=== PATIENT | female | born 1985 | race Caucasian/White ===

== ENCOUNTER 2021-02-26 07:44 | Day surgery (SDC) | payer MEDICAID ==
[2021-02-26] VITALS (13 sets, daily range): BP systolic 119–144; BP diastolic 70–96
--- OUTSIDE RECORDS SUMMARY | 2021-02-26 07:48 | XMS REPORT ---
Discharge Summary 2.1 Created on: 02/12/2021 BLAYNE ARELLANO : 1985 Sex: Female Author Author BLAYNE PUGA Organization Unknown Address [address] [place], [place] [address] Care Team Providers Care Operating Room Orderly Name Role Phone Watchlist CLIVE Craven MD Attending RANDA MONREAL MD Consult1 [facility] CLIVE Craven MD HOSPITAL Watchlist [phone] Functional Status No Data Found Immunization Immunization Date Status Additional Notes Code Code System DTP DTP 1985 Completed CVX DTP DTP 1987 Completed CVX DTP DTP 1987 Completed CVX DTP DTP 09/16/1988 Completed CVX DTP DTP 09/12/1991 Completed 01 CVX OPV OPV 1987 Completed 02 CVX OPV OPV 1987 Completed 02 CVX OPV OPV 09/16/1988 Completed 02 CVX OPV OPV 09/12/1991 Completed 02 CVX MMR MMR 10/20/2012 Completed 03 CVX MMR MMR 12/28/1989 Completed 03 CVX MMR MMR 10/17/1991 Completed 03 CVX Hep B, adolescent or pediatric Hep B, adolescent or pediatric 10/29 Completed 08 CVX Td (adult), 2 Lf tet anus toxoid, preservative free, adsorbed Td (adult), 2 Lf tetanus toxoid, preservative free, adsorbed 08/08/2003 Completed 09 CVX IPV IPV 1987 Completed 10 CVX IPV IPV 1987 Completed 10 CVX IPV IPV 09/16/1988 Completed 10 CVX IPV IPV 09/12/1991 Completed 10 CVX DTaP DTaP 1987 Completed 20 CVX DTaP DTaP 1987 Completed 20 CVX DTaP DTaP 1987 Completed 20 CVX DTaP DTaP 09/16/1988 Completed 20 CVX DTaP DTaP 09/12/1991 Completed 20 CVX Hib (HbOC) Hib (HbOC) 08/30/1990 Completed 47 CVX Hib (PRP-T) Hib (PRP-T) 08/30/1990 Completed 48 CVX Td (adult), 5 Lf tet anus toxoid, preservative free, adsorbed Td (adult), 5 Lf tetanus toxoid, preservative free, adsorbed 08/08/2003 Completed 113 CVX Tdap Tdap 10/20/2012 Completed 115 CVX Tdap Tdap 12/02/2012 Completed 115 CVX Tdap Tdap 11/28/2014 Canceled 115 CVX COVID-19 vaccine, ve ctor-nr, rS-Ad26, PF, 0.5 mL COVID-19 vaccine, vector-nr, rS-Ad26, PF , 0.5 mL 09/17/2020 Completed 212 CVX Mental Status No Data Found Results CBC W/ AUTO DIFF (RFLX MAN DIFF IF IND) - Collect Date/Time: 02/12/2021 05:55 [employer] ID: [id number] [address], [place], [place], [id number] LOINC: 88000-7 Test Value Unit Reference Range Code Code System WBC 7.9 TH/CMM L=4.5 H=10.8 80272-5 LOINC RBC 1.67 ML/CMM L=4.20 H=5.40 789-8 LOINC HGB 5.4 G/DL L=12.0 H=16.0 7 18-7 LOINC HCT 15.7 % L=37.0 H=47.0 4544 -3 LOINC MCV 94 FL L=81 H=99 MCH 32.3 PG L=27.0 H=33.0 MCHC 34.4 G/DL L=31.0 H=36.0 RDW SD 51 FL L=36 H=50 RDW CV 15.6 % L=0.0 H=14.8 MPV 11.4 FL L=9.3 H=12.5 PLT 259 TH/CMM L=130 H=440 777-3 LOINC NRBC# 0.00 TH/CMM L=0.00 H=0.00 NRBC% 0.0 /100WBC L=0.0 H=2.0 %NEUT 87.3 % %LYMP 6.2 % %MONO 6.1 % %EOS 0.0 % %BASO 0.0 % #NEUT 6.91 TH/CMM L=2.10 H=8.20 #LYMP 0.49 TH/CMM L=0.90 H=5.20 #MONO 0.48 TH/CMM L=0.16 H=1.00 #EOS 0.00 TH/CMM L=0.00 H=0.80 #BASO 0.00 TH/CMM L=0.00 H=0.20 MANUAL DIFF NOT IND COMPREHENSIVE METABOLIC PANEL - Collect Date/Time: 02/12/2021 05:55 [employer] ID: [id number] [address] [facility] [address], [place], [place], [id number] LOINC: 62235-7 Test Value Unit Reference Range Code Code System GLUCOSE 130 MG/DL L=74 H=100 2 345-7 LOINC SODIUM 137 MEQ/L L=135 H=145 2 951-2 LOINC POTASSIUM 4.6 MEQ/L L=3.5 H=5.1 2 823-3 LOINC CHLORIDE 98 MEQ/L L=98 H=107 2 075-0 LOINC CO2 26 MEQ/L L=22 H=30 20 28-9 LOINC BUN 18 MG/DL L=7 H=17 30 94-0 LOINC CREATININE 0.70 MG/DL L=0.50 H=1.00 2160-0 LOINC SGOT/AST 21 IU/L L=14 H=36 192 0-8 LOINC SGPT/ALT 21 IU/L L=0 H=35 174 2-6 LOINC ALK PHOS 54 IU/L L=40 H=150 67 68-6 LOINC TOTAL PROTEIN 7.1 G/DL L=6.3 H=8.2 28 85-2 LOINC ALBUMIN 3.6 G/DL L=3.5 H=5.0 17 51-7 LOINC TOTAL BILI 1.0 MG/DL L=0.2 H=1.3 1 975-2 LOINC CALCIUM 8.8 MG/DL L=8.6 H=10.3 46336-8 LOINC AGE 36 yrs GFR NonAA 96 GFR AA 116 eGFR 96 mL/min/1.7 eGFR AA* >60 .BB COMPATIBILITY - Collect Date/Time: 0 02/11/2021 12:30 [employer] ID: [id number] [address], [place], [place], [id number] LOINC: 1250-0 Test Value Unit Reference Range Code Code System Cross Match Result COMPATIBLE Unit Blood Type A Pos Unit Number [id number] RBC -1 LR Status Information Ready Product Identification Red Blood Cells DIRECT CHEL - Collect Date/Time: 02/11 12:27 Hello [employer] ID: [id number] [address], [place], [place], [id number] LOINC: 1007-4 Test Value Unit Reference Range Code Code System Anti-IgG MAURI- Gel Positive .BB ANTIBODY ID - Collect Date/Time: 12:21 Hello [employer] ID: [id number] [address], [place], [place], [phone] LOINC: 888-8 Test Value Unit Reference Range Code Code System Panel - Gel Warm AutoAntibody TYPE AND Rh - Collect Date/Time: 021 12:21 Hello [employer] ID: [id number] [address], [place], [place], [id number] LOINC: 882-1 Test Value Unit Reference Range Code Code System ABO/Rh Type A Positive DIRECT CHEL - Collect Date/Time: 02/11 12:21 Hello [employer] ID: [id number] [address] [place], [place], [id number] LOINC: 1007-4 Test Value Unit Reference Range Code Code System Anti-IgG MAURI- Gel Positive MAURI:Polyspec Tube POSITIVE MAURI Anti-C3d Tube POSITIVE ANTIBODY SCREEN - Collect Date/Time: 12:21 [facility] ID: [id number] [address] [facility] [address] [place], [place], [phone] LOINC: 890-4 Test Value Unit Reference Range Code Code System Antibody Screen-Gel Positive CBC W/ AUTO DIFF (RFLX MAN DIFF IF IND) - Collect Date/Time: 02/11/2021 07:55 [facility] ID: [id number] [address] [facility] [address] [place], [place], [id number] LOINC: 60284-3 Test Value Unit Reference Range Code Code System WBC 5.7 TH/CMM L=4.5 H=10.8 31286-0 LOINC RBC 1.16 ML/CMM L=4.20 H=5.40 789-8 LOINC HGB 4.1 G/DL L=12.0 H=16.0 7 18-7 LOINC HCT 11.8 % L=37.0 H=47.0 4544 -3 LOINC MCV 102 FL L=81 H=99 MCH 35.3 PG L=27.0 H=33.0 MCHC 34.7 G/DL L=31.0 H=36.0 RDW SD 52 FL L=36 H=50 RDW CV 15.1 % L=0.0 H=14.8 MPV 11.2 FL L=9.3 H=12.5 PLT 290 TH/CMM L=130 H=440 777-3 LOINC NRBC# 0.00 TH/CMM L=0.00 H=0.00 NRBC% 0.0 /100WBC L=0.0 H=2.0 %NEUT 90.2 % %LYMP 7.1 % %MONO 2.4 % %EOS 0.0 % %BASO 0.0 % #NEUT 5.17 TH/CMM L=2.10 H=8.20 #LYMP 0.41 TH/CMM L=0.90 H=5.20 #MONO 0.14 TH/CMM L=0.16 H=1.00 #EOS 0.00 TH/CMM L=0.00 H=0.80 #BASO 0.00 TH/CMM L=0.00 H=0.20 MANUAL DIFF SEE BELOW SEGS 93 % BANDS LYMPHS 7 % MONOS EOS BASO METAS MYELO PROS BLASTS ATYP LYMPHS RBC MORPH DIRECT CHEL - Collect Date/Time: 02/11 07:55 [employer] ID: [id number] [address] [facility] [address], [place], [place], [id number] LOINC: 1007-4 Test Value Unit Reference Range Code Code System Anti-IgG MAURI- Gel Positive MAURI:Polyspec Tube POSITIVE MAURI Anti-C3d Tube POSITIVE BILIRUBIN DIRECT - Collect Date/Time: 07:55 [employer] ID: [id number] [address] [facility] [address], [place], [place], [id number] LOINC: 1968-7 Test Value Unit Reference Range Code Code System DIRECT BILI 0.1 MG/DL L=0.0 H=0.4 1 968-7 LOINC HAPTOGLOBIN QUANT - Collect Date/Time: 0 02/11/2021 07:55 Hello [employer] ID: [id number] [address] [facility] [address], [place], [place], [id number] LOINC: 4542-7 Test Value Unit Reference Range Code Code System Haptoglobin 21 33-278 4542-7 LOINC COMPREHENSIVE METABOLIC PANEL - Collect Date/Time: 02/11/2021 07:55 [employer] ID: [id number] [address] [facility] [address], [place], [place], [phone] LOINC: 64920-3 Test Value Unit Reference Range Code Code System GLUCOSE 139 MG/DL L=74 H=100 2 345-7 LOINC SODIUM 136 MEQ/L L=135 H=145 2 951-2 LOINC POTASSIUM 4.7 MEQ/L L=3.5 H=5.1 2 823-3 LOINC CHLORIDE 96 MEQ/L L=98 H=107 2 075-0 LOINC CO2 28 MEQ/L L=22 H=30 20 28-9 LOINC BUN 15 MG/DL L=7 H=17 30 94-0 LOINC CREATININE 0.60 MG/DL L=0.50 H=1.00 2160-0 LOINC SGOT/AST 43 IU/L L=14 H=36 192 0-8 LOINC SGPT/ALT 19 IU/L L=0 H=35 174 2-6 LOINC ALK PHOS 66 IU/L L=40 H=150 67 68-6 LOINC TOTAL PROTEIN 7.3 G/DL L=6.3 H=8.2 28 85-2 LOINC ALBUMIN 3.7 G/DL L=3.5 H=5.0 17 51-7 LOINC TOTAL BILI 1.0 MG/DL L=0.2 H=1.3 1 975-2 LOINC CALCIUM 8.7 MG/DL L=8.6 H=10.3 90293-6 LOINC AGE 36 yrs GFR NonAA 114 GFR AA 138 eGFR 114 mL/min/1.7 eGFR AA* >60 INHOUSE COVID-19 - Collect Date/Time: 19:49 [employer] ID: [id number] [address] [facility] [address], [place], [place], [id number] LOINC: Q12164-8 Test Value Unit Reference Range Code Code System SARS-CoV-2 RNA Not Detected NL: Not Detected S65983-7 LOINC Specimen Source: Nasopharyngeal COMPREHENSIVE METABOLIC PANEL - Collect Date/Time: 02/10/2021 17:05 [employer] ID: [id number] [address] [facility] [address], [place], [place], [id number] LOINC: 04578-0 Test Value Unit Reference Range Code Code System GLUCOSE 103 MG/DL L=74 H=100 2 345-7 LOINC SODIUM 136 MEQ/L L=135 H=145 2 951-2 LOINC POTASSIUM 4.1 MEQ/L L=3.5 H=5.1 2 823-3 LOINC CHLORIDE 95 MEQ/L L=98 H=107 2 075-0 LOINC CO2 28 MEQ/L L=22 H=30 20 28-9 LOINC BUN 21 MG/DL L=7 H=17 30 94-0 LOINC CREATININE 0.70 MG/DL L=0.50 H=1.00 2160-0 LOINC SGOT/AST 22 IU/L L=14 H=36 192 0-8 LOINC SGPT/ALT 21 IU/L L=0 H=35 174 2-6 LOINC ALK PHOS 68 IU/L L=40 H=150 67 68-6 LOINC TOTAL PROTEIN 7.2 G/DL L=6.3 H=8.2 28 85-2 LOINC ALBUMIN 3.6 G/DL L=3.5 H=5.0 17 51-7 LOINC TOTAL BILI 1.2 MG/DL L=0.2 H=1.3 1 975-2 LOINC CALCIUM 8.3 MG/DL L=8.6 H=10.3 65889-7 LOINC AGE 36 yrs GFR NonAA 96 GFR AA 116 eGFR 96 mL/min/1.7 eGFR AA* >60 HAPTOGLOBIN QUANT - Collect Date/Time: 0 02/10/2021 17:05 [employer] ID: [id number] [address] [facility] [address], [place], [id number] LOINC: 4542-7 Test Value Unit Reference Range Code Code System Haptoglobin <10 33-278 4542-7 LOINC PHOSPHORUS - Collect Date/Time: 02/11/20 17:05 [employer] ID: [id number] [address] [facility] [address], [place], [place], [id number] LOINC: 2777-1 Test Value Unit Reference Range Code Code System PHOSPHORUS 4.1 MG/DL L=2.5 H=4.5 2 777-1 LOINC MAGNESIUM - Collect Date/Time: 17:05 [employer] ID: [id number] [address] [facility] [address], [place], [place], [id number] LOINC: 81500-0 Test Value Unit Reference Range Code Code System MAGNESIUM 2.6 MG/DL L=1.6 H=2.3 1 9123-9 LOINC DIRECT CHEL - Collect Date/Time: 02/10 17:05 Hello [employer] ID: [id number] [address] [facility] [address], [place], [place], [id number] LOINC: 1007-4 Test Value Unit Reference Range Code Code System MAURI:Polyspec Tube POSITIVE TYPE AND CROSS - Collect Date/Time: 01/14 17:05 Hello [employer] ID: [id number] [address] [facility] [address], [place], [address] LOINC: 13846-0 Test Value Unit Reference Range Code Code System ABO/Rh Type A Positive Antibody Screen-Gel Positive CBC W/ AUTO DIFF (RFLX MAN DIFF IF IND) - Collect Date/Time: 02/10/2021 17:05 [employer] ID: [id number] [address] [facility] [address], [place], [id number] LOINC: 78275-3 Test Value Unit Reference Range Code Code System WBC 6.5 TH/CMM L=4.5 H=10.8 97539-7 LOINC RBC 1.21 ML/CMM L=4.20 H=5.40 789-8 LOINC HGB 4.2 G/DL L=12.0 H=16.0 7 18-7 LOINC HCT 12.2 % L=37.0 H=47.0 4544 -3 LOINC MCV 101 FL L=81 H=99 MCH 34.7 PG L=27.0 H=33.0 MCHC 34.4 G/DL L=31.0 H=36.0 RDW SD 54 FL L=36 H=50 RDW CV 15.6 % L=0.0 H=14.8 MPV 11.0 FL L=9.3 H=12.5 PLT 267 TH/CMM L=130 H=440 777-3 LOINC NRBC# 0.00 TH/CMM L=0.00 H=0.00 NRBC% 0.0 /100WBC L=0.0 H=2.0 %NEUT 82.6 % %LYMP 9.5 % %MONO 7.4 % %EOS 0.0 % %BASO 0.2 % #NEUT 5.33 TH/CMM L=2.10 H=8.20 #LYMP 0.61 TH/CMM L=0.90 H=5.20 #MONO 0.48 TH/CMM L=0.16 H=1.00 #EOS 0.00 TH/CMM L=0.00 H=0.80 #BASO 0.01 TH/CMM L=0.00 H=0.20 MANUAL DIFF NOT IND Social History Type Status Start Date End Date Code Code System Smoking History Current every day smoker 981310433 SNOMED-CT Smoking History Never smoker (Never Smoked ) 635825098 SNOMED-CT Vital Signs Vital Sign Value Unit [place] Value [place] Unit Date/Time Recent/Initial? Code Cod e System Body Mass Index 53.29 kg/m2 02/10/2021 18:25 Initial 14836-6 INC Systolic Blood Pressure 150 mm[Hg] 02/12/2021 07:32 Most Recent 8480-6 LOINC Diastolic Blood Pressure 90 mm[Hg] 02/12/2021 07:32 Most Recent 8462-4 LOINC Systolic Blood Pressure 135 mm[Hg] 02/10/2021 18:25 Initial 8480-6 LOINC Diastolic Blood Pressure 84 mm[Hg] 02/10/2021 18:25 Initial 8462-4 LOINC Body Surface Area 2.70 m2 02/10/2021 18:25 Initial 3140-1 LOINC Height 170.1800 cm 67.00 in 02/10/2021 18:25 Initial 8302-2 LOINC O2 Saturation 10 0 % 02/12/2021 07:32 Most Recent 14258-1 LOINC O2 Saturation 10 0 % 02/10/2021 18:25 Initial 30036-6 LOINC Pulse 90.0 /min 0 02/12/2021 07:32 Most Recent 8867-4 LOINC Pulse 103.0 /min 0 02/10/2021 18:25 Initial 8867-4 LOINC Respiration 21 /min 02/12/2021 07:32 Most Recent 9279-1 LOINC Respiration 32 /min 02/10/2021 18:25 Initial 9279-1 LOINC Temperature 36.8 Jeanie 98.3 02/12/2021 07:32 Most Recent 8310-5 LOINC Temperature 37.0 Jeanie 98.6 02/10/2021 18:25 Initial 8310-5 LOINC Weight 154.33 kg 340.25 lbs 02/10/2021 18:25 Initial 72934-0 LOINC Assessment You had the following problems: WARM AUTOIMMUNE HEMOLYTIC ANEMIA DYSPNEA VITAMIN B12 DEFICIENCY FOLIC ACID DEFICIENCY Assessment and Plan: 1. Warm autoimmune Hemolytic anemia: she appears to have missed a day of prednisone -will give solumedrol -pending CBC, Tbili is normal now -recheck chel and haptoglobin -trend HGB -no symptoms of anemia -type 2 units and hold -follow up with dr Beasley on wednesday and track response to steroids 2. GERD: PPI 3. Headache: migraine type -provide pain meds 4. Consitpation: milk and molassess enema -no signs of acute abd or GI bleed 5. Tobacco use: nicotine patch 6. Dispo: DC once no evidence of AIHA or transfer if not responsive to steroids -? failure to keep prednisone after DC - check electrolytes Assessment and Plan: 1. Chel positive hemolytic anemia- prbc transfusion in process. awaiting hematology consultation tomorrow. continue solumedrol . follow cbc. 2.tobacco abuse- highly encouraged total tobacco cessation in light of anemia 3. morbid obesity-discussed the importance of better nutrition and overall improving health 4. headache-continues. meds available. neurologically intact. no evidence of acute sinusitis but will monitor for further symptoms. Hospital Discharge Instructions Should you have any questions prior to discharge, please contact a member of your healthcare team. If you have left the hospital and have any questions, please contact your primary care physician. Reason For Referral Receiving Provider: PAT AUGUST [id number] Hospital Course You were admitted to [facility] on 02/10/2021 17:42 Medications Medication Start Date En d Date Route Frequency Dose Code Code System Medication Instructions Vitamin B12 AvPak 10 00MCG Oral Tablet 10/02/2020 Unknown BY [facility] DAILY 1000 MICROGRAM RxNorm 1000 KATHERINE ROGRAM BY MOUTH DAILY Folic Acid 1MG Oral Tablet 10/02/2020 Unknown BY [facility] DAILY 1 MILLIGRAMS 05108 0 RxNorm 1 MILLIG RAFAEL BY MOUTH DAILY HYDROcodone bitartra te-acetaminophen 5MG-325MG Oral Tablet 02/08/2021 Unknown BY MOUTH NEEDED EVERY 4 HR 1 TABLET 553249 RxNorm 1 TABLET BY MOUTH NEEDED EVERY 4 HR predniSONE 20MG Oral Tablet 02/08/2021 Unknown BY [facility] EVERY 12 HOURS 2 TABLET 342872 RxNorm 2 TABLET BY MOUTH EVERY 12 HOURS for 1 week then 1 tab PO BID for 1 week then 1 tab PO Qday until Hematology follow up NS 1000 ML IV [PRED EFINED] (7983) 02/10/2021 Unknown INTRA VENOUS CONT IV 75 ml/hr 1081116 RxNorm 75 ml/hr INTRAVENOUS ~~~NACL 0.9% (7983) 1000ML IV BAG 1000 ML RxNorm ONDANSETRON [ZOFRAN] INJ 4 MG/2 ML VIAL 02/10/2021 Unknown SLOW IV PUSH PRN Q 4 HRS 4 MG 5251175 RxNorm 4 MG SLO W IV PUSH EVERY 4 HOURS NEE FOLIC ACID(FOLVITE) TAB:1MG 02/10/2021 Unknown BY [facility] DAILY 1 MG 246255 RxNorm 1 MG BY MOUTH DAILY CYANOCOBALAMIN [TALI MIN B12] TAB:1000MCG 02/10/2021 Unknown BY [facility] DAILY 1000 MCG RxNorm 1000 MCG BY MOUTH DAILY BUPROPIONXL[WELL BUTRIN XL]HQR885 MG 02/10/2021 Unknown BY [facility] DAILY 300 MG 737007 RxNorm 300 MG B Y MOUTH DAILY ONDANSETRON [ZOFRAN] INJ 4 MG/2 ML VIAL 02/10/2021 Unknown SLOW IV PUSH PRN Q 4 HRS 4 MG 5484589 RxNorm 4 MG SLO W IV PUSH EVERY 4 HOURS NEE METHYLPREDNISOLONE I NJ [SOLU] 125MG VL 02/10/2021 02/11/2021 IV PUSH Q8H 125 MG 9837605 RxNorm 125 MG I V PUSH EVERY 8 HOURS DOCUSATE SODIUM 100 MG [COLACE] CAPSULE 02/10/2021 Unknown BY [facility] BID 100 MG 7752995 RxNorm 100 MG B Y MOUTH TWO TIMES A DAY HYDROmorphone [DILAU DID] INJ: 2MG/ML 02/10/2021 Unknown IV PU SH PRN Q 6 HRS 1 MG 6628000 RxNorm 1 MG IV PUSH EVERY 6 HRS NEEDE PANTOPRAZOLE [PROTON IX] INJ VIAL: 40 MG 02/10/2021 02/10/2021 SL OW IV PUSH X1 40 MG 179199 RxNorm 40 MG SL OW IV PUSH NOW PANTOPRAZOLE [PROTON IX] INJ VIAL: 40 MG 02/10/2021 Unknown SLOW IV PUSH DAILY 40 MG 373945 RxNorm 40 MG SL OW IV PUSH DAILY DIPHENHYDRAMINE (STEPAN ADRYL)INJ : 50MG/ML 02/11/2021 02/11/2021 SL OW IV PUSH X1 25 MG 6217788 RxNorm 25 MG SL OW IV PUSH NOW HYDROMORPHONE (DILAU DID) TAB:2MG 02/11/2021 Unknown BY [facility] PRN Q 6 HRS 2 MG 290158 RxNorm 2 MG BY MOUTH EVERY 6 HRS NEEDE PredniSONE 20 MG TABLET 02/11/2021 Unknown BY MOUTH BID 60 MG 217528 RxNorm 60 MG BY MOUTH TWO T IMES A DAY FUROSEMIDE [LASIX] T ABLET: 20 MG 02/12/2021 02/12/2021 BY MOUTH X1 20 MG 405256 RxNorm 20 MG BY MOUTH NOW DIPHENHYDRAMINE (STEPAN ADRYL) CAP : 50 MG 02/12/2021 02/12/2021 BY MOUTH X1 50 MG 0531617 RxNorm 50 MG BY MOUTH NOW ACETAMINOPHEN ES [TY LENOL] TAB : 500 MG 02/12/2021 Unknown BY [facility] PRN 500 MG 530789 RxNorm 500 MG B Y MOUTH NEEDED Procedures No Data Found Implants No Data Found Problems Problem Start Date Resol sandra Date Status Code Code System WARM AUTOIMMUNE HEMOLYTIC ANEMIA active 9540648 SNOMED-CT DYSPNEA active 500300388 SNOMED-CT VITAMIN B12 DEFICIENCY active 353162505 SNOMED- CT FOLIC ACID DEFICIENCY active 542878059 SNOMED-CT HYPERVENTILATION 09/27/2020 02/07/2021 resolved 64980293 SNOMED -CT COMMUNITY ACQUIRED PNEUMONIA 02/07/2021 resolved 820620336 SNOME D-CT Allergies Allergy Substance Reaction Severity Start Date Concern Status Code Code System PCN (penicillin) Active 3902788 SNOMED-CT LATEX Active 8804347 RxNorm TOMATO Anaphylaxis (SNOMED-CT: 29893814) Severe Active 252983605 SNOMED-CT Plan of Treatment .BB PRC 02/12/2021 LOINC : 40364-0 CBC W/ AUTO DIFF (RFLX MAN DIFF IF IND) 02/13/2021 LOINC: 07150-5 COMPREHENSIVE METABOLIC PANEL 02/13/2021 LOINC: 94591-8 DIRECT CHEL 02/13/2021 LOINC: 1007-4 US Abdomen LTD (Single Organ) 2019 Encounters No Data Found Goals No Data Found Discharge Medications No Data Found Discharge Diagnosis No Data Found Health Concerns Section No Data Found
[2021-02-26] MEDS ORDERED: NS IV 1000 ML 1,000 ML IV STA (08:03)
[2021-02-26] MEDS ORDERED: LIDOCAINE 1% INJ 20 ML 20 ML VIAL INJ ONE (08:15)
[2021-02-26] MEDS ORDERED: fentaNYL INJ 100 MCG/2 ML AMP IVP ONE (08:15)
[2021-02-26] MEDS ORDERED: MIDAZOLAM 2 MG/2 ML (VERSED) VIAL IVP ONE (08:15)
[2021-02-26 08:26] LABS: ABSOLUTE RETIC # 348 10e9/uL (24-90); BASOPHILS % (AUTO) 0 % (0-10); EOSINOPHILS % (AUTO) 0 % (0-10); HEMATOCRIT 27 % (35-52); HEMOGLOBIN 8.6 g/dL (11.5-16.0); LYMPHOCYTES # (AUTO) 0.7 10^3/uL (1.0-4.0); LYMPHOCYTES % (AUTO) 6 % (12-44); MEAN CORPUSCULAR HEMOGLOBIN 33 pg (25-34); MEAN CORPUSCULAR HGB CONC 32 g/dL (32-36); MEAN CORPUSCULAR VOLUME 103 fL (80-99); MEAN PLATELET VOLUME 10.2 fL (9.0-12.2); MONOCYTES # (AUTO) 0.5 10^3/uL (0.0-1.0); MONOCYTES % (AUTO) 4 % (0-12); NEUTROPHILS # (AUTO) 10.3 10^3/uL (1.8-7.8); NEUTROPHILS % (AUTO) 88 % (42-75); PLATELET COUNT 142 10^3/uL (130-400); RETICULOCYTE % 13.48 % (0.50-2.40); WHITE BLOOD COUNT 11.7 10^3/uL (4.3-11.0)
[2021-02-26 08:36] LABS: PROTHROMBIN TIME PATIENT 13.3 SEC (12.2-14.7)
[2021-02-26 08:58] LABS: ANISOCYTOSIS MARKED; LYMPHOCYTES % (MANUAL) 9 %; MONOCYTES % (MANUAL) 2 %; NEUTROPHILS % (MANUAL) 89 %; NUCLEATED RED BLOOD CELLS 6; POLYCHROMASIA MODERATE
--- NOTE | 2021-02-26 10:01 | Pre-Op Note & Conscious Sedat ---
Pre-Operative Progress Note H&P Reviewed The H&P was reviewed, patient examined and no changes noted. Date H&P Reviewed: Feb 26, 2021 Time H&P Reviewed: 09:00 Pre-Op Diagnosis: hemoglobinopathy Conscious Sedation Pre-Proced Time 09:00 ASA Score 2 For ASA 3 and 4: Consider anesthesia and medical clearance. Also, for patients with a history of failed moderate sedation consider anesthesia. Airway Lungs Heart ASA score ASA 1: a normal healthy patient ASA 2: a patient with a mild systemic disease (mid diabetes, controlled hypertension, obesity ASA 3: a patient with a severe systemic disease that limits activity (angina, COPD, prior Myocardial infarction) ASA 4: a patient with an incapacitating disease that is a constant threat to life (CHF, renal failure) ASA 5: a moribund patient not expected to survive 24 hrs. (ruptured aneurysm) ASA 6: a declared brain- patient whose organs are being harvested. For emergent operations, add the letter E after the classification Mallampati Classification Grade 2 Sedation Plan Analgesia, Amnesia, Plan communicated to team members, Discussed options with elijah franz/fam, Discussed risks with patient/fam The patient is an appropriate candidate to undergo the planned procedure, sedation, and anesthesia. The patient immediately re-assessed prior to indication. PHILL LOW MD Feb 26, 2021 10:01
[2021-02-26] MEDS ORDERED: HYDROcodone/APAP 5 MG/325 MG (LORTAB) TAB PO PRN (10:15)
--- NOTE | 2021-02-26 10:23 | Diagnostic Imaging Report ---
INDICATION: Low hemoglobin. Patient brought to CT suite placed on table in prone position. Axial imaging through the pelvis was performed to evaluate appropriate entry site. The skin of the low back was prepped and draped in usual sterile fashion. Small amount 1% lidocaine was utilized for local anesthesia. Procedure was performed utilizing conscious sedation with radiology nursing constant monitoring. Patient was given a total 100 mcg of fentanyl intravenously and 2 mg Versed intravenously. Total procedure time was 11 minutes. 11-gauge bone marrow biopsy needle was advanced and placed with its tip along the posterior cortex of the right iliac bone. Needle was advanced to the cortex utilizing a bone marrow drill. 2 bone marrow aspirates were then obtained. Next, the bone marrow drill was utilized to obtain a bone marrow core biopsy. Needle was removed and hemostasis was obtained using manual compression. Patient tolerated the procedure well and left the Department in stable condition. IMPRESSION: Successful CT-guided bone marrow aspiration and core biopsy, utilizing conscious sedation. Dictated by: Dictated on workstation # [id number]
[2021-02-26] MEDS ORDERED: FOLI1TAB33 PO (11:20)
[2021-02-26] MEDS ORDERED: PRD50T PO (11:20)
[2021-02-26] MEDS ORDERED: CYAN-41 PO (11:20)
[2021-02-26] MEDS ORDERED: BUPR300T43 PO (11:20)
== END 2021-02-26 12:24 | disposition home or self-care (01) ==
LOC: RAD 07:44 → SDC 10:08 → RAD 12:24
PROVIDERS: ATTEND Internal Medicine Hematology & Oncology
DX: D75.89 Other specified diseases of blood and blood-forming organs (principal); D64.9 Anemia, unspecified; R70.1 Abnormal plasma viscosity; F31.9 Bipolar disorder, unspecified; K21.9 Gastro-esophageal reflux disease without esophagitis; Z90.49 Acquired absence of other specified parts of digestive tract; Z90.89 Acquired absence of other organs; Z79.899 Other long term (current) drug therapy; Z87.891 Personal history of nicotine dependence; G43.909 Migraine, unspecified, not intractable, without status migrainosus
CPT/HCPCS: 36415; 38222; 77012; 85007; 85027; 85045; 85055; 85610; 85730; 88184; 88185; 88237; 88264; 99156

== ENCOUNTER → 2021-04-29 | Outpatient (CLI) | payer MEDICAID, OTHER ==
[~2021-04-29] MED LIST: BUPR300T43 PO; CYAN-41 PO; FOLI1TAB33 PO; PRD50T PO
--- NOTE | 2021-04-29 09:53 | Diagnostic Imaging Report ---
INDICATION: LOW BACK PAIN, NO KNOWN INJURY TECHNIQUE: AP, Lateral and Spot imaging of the lumbar spine CORRELATION STUDY: None FINDINGS: Straightening of normal lumbar lordotic curvature. Lumbar vertebral body heights maintained. Various degrees of mild disc space narrowing. Endplate marginal lipping is present. SI joints are relatively unremarkable. Cholecystectomy clips in the right upper quadrant. IMPRESSION: No radiographic evidence for acute bony abnormality of the lumbar spine. Very mild degenerative changes are present. Dictated by: Dictated on workstation # [id number]
== END ==
LOC: RAD 08:45
PROVIDERS: ATTEND Anesthesiology Pain Medicine
DX: Z02.71 Encounter for disability determination (principal); M47.816 Spondylosis without myelopathy or radiculopathy, lumbar region
CPT/HCPCS: 72100

== ENCOUNTER → 2021-08-26 | Outpatient (CLI) | payer OTHER | LOC: RT 14:15 | PROVIDERS: ATTEND Anesthesiology Pain Medicine | DX: Z02.71 Encounter for disability determination (principal) | CPT/HCPCS: 94060 ==